=== PATIENT | female | born 1995 | race African-American/Black ===

== ENCOUNTER → 2018-02-01 | Outpatient (CLI) | payer OTHER | LOC: M RAD 09:34 | DX: J32.4 Chronic pansinusitis (principal); J01.90 Acute sinusitis, unspecified | CPT/HCPCS: 70486 ==

== ENCOUNTER → 2018-06-09 | Outpatient (CLI) | payer OTHER | LOC: M RAD 13:58 | DX: Z32.01 Encounter for pregnancy test, result positive (principal); Z36.89 Encounter for other specified antenatal screening; Z3A.01 Less than 8 weeks gestation of pregnancy | CPT/HCPCS: 76801 ==

== ENCOUNTER 2019-04-11 12:50 | Emergency (ER) | payer OTHER ==
[~2019-04-11] VITALS: Ht 165.1 cm; Wt 59.1 kg
[2019-04-11] MEDS ORDERED: ACET500T15 PO (12:56)
[2019-04-11] MEDS ORDERED: AUGM875T28 PO (14:53)
[2019-04-11] MEDS ORDERED: PRED20TA PO (14:53)
[2019-04-11 15:23] VITALS: BP 101/65
== END 2019-04-11 15:27 | disposition home or self-care (01) ==
LOC: M ED 12:50
DX: J32.9 Chronic sinusitis, unspecified (principal); Z87.891 Personal history of nicotine dependence